=== PATIENT | female | born 1980 | race Caucasian/White ===

== ENCOUNTER 2017-03-15 15:04 | Observation (INO) | payer BC ==
[~2017-03-15] VITALS: Ht 165.1 cm; Wt 89.3 kg
[2017-03-15 17:12] LABS: ADD MIUA? YES; BILIRUBIN NEGATIVE; BLOOD NEGATIVE; COLOR YELLOW ((YELLOW)); GLUCOSE (STRIP) NEGATIVE; KETONES NEGATIVE; LEUKOCYTES NEGATIVE; NITRITE NEGATIVE; PROTEIN (STRIP) NEGATIVE; SPECIFIC GRAVITY 1.015 (1.000-1.030); UROBILINOGEN 0.2 MG/DL (0.2-1.0)
[2017-03-15 17:20] LABS: BACTERIA RARE /HPF; CALCIUM OXALATE CRYSTALS 1+ /HPF; EPITHELIAL CELLS RARE /HPF; MUCUS TRACE /LPF; RED BLOOD CELLS 0-5 /HPF (0-5); WHITE BLOOD CELLS 0-5 /HPF (0-5)
[2017-03-15 17:34] LABS: EOSINOPHIL (%) 1.9 % (0-5); EOSINOPHIL COUNT 0.1 K/uL (0-0.3); HEMATOCRIT 36.9 % (36.0-46.0); IMMATURE GRANULOCYTE (%) 0.3 % (0.0-0.7); INSTRUMENT ABS NEUTROPHIL CT 3.6 K/uL; LYMPHOCYTE COUNT 1.7 K/uL (1.0-2.8); MCH 29.6 PG (29.0-34.0); MCHC 33.3 G/DL (30.0-36.0); MCV 88.7 FL (83-99); MEAN PLAT.VOLUME 10.2 uM^3 (9.5-12.4); MONOCYTE (%) 6.7 % (3-12); MONOCYTE COUNT 0.4 K/uL (0-0.8); NEUTROPHIL (%) 61.9 % (45-76); NEUTROPHIL COUNT 3.6 K/uL (1.8-6.4); PLATELET COUNT 262 K/uL (156-360); RBC DIS.WIDTH-SD 38.9 % (39-53); RED BLOOD COUNT 4.16 M/uL (3.80-5.20); WHITE BLOOD COUNT 5.8 K/uL (4.1-10.2)
[2017-03-15 17:51] LABS: CHLORIDE 110 mEq/L (99-109); POTASSIUM 3.9 mEq/L (3.7-5.4); SODIUM 140 mEq/L (136-147)
[2017-03-15 17:53] LABS: GLUCOSE 94 mg/dL (70-99)
[2017-03-15 17:54] LABS: ANION GAP 5 MEQ/L (2-14)
[2017-03-15 17:55] LABS: TOTAL BILIRUBIN 0.4 mg/dL (0.0-1.0)
[2017-03-15 17:56] LABS: ALKALINE PHOSPHATASE 70 IU/L (3-129)
[2017-03-15 17:57] LABS: GFR ESTIMATE (CALCULATED) > 59 mL/min/
[2017-03-15 17:58] LABS: DIRECT BILIRUBIN 0.2 mg/dL (0.0-0.3); UREA NITROGEN (BUN) 11 mg/dL (9-23)
[2017-03-15 18:00] LABS: LIPASE 17 U/L (1.0-51.0)
[2017-03-15] MEDS ORDERED: ADVIL200 MG PO (19:39)
[2017-03-15] MEDS ORDERED: [UNRECOGNIZED DRUG - OTHER] PO (19:41)
[2017-03-16 00:16] VITALS: BP 104/59
[2017-03-16 05:44] LABS: EOSINOPHIL (%) 2.9 % (0-5); EOSINOPHIL COUNT 0.2 K/uL (0-0.3); HEMATOCRIT 34.4 % (36.0-46.0); IMMATURE GRANULOCYTE (%) 0.3 % (0.0-0.7); INSTRUMENT ABS NEUTROPHIL CT 3.1 K/uL; LYMPHOCYTE COUNT 2.4 K/uL (1.0-2.8); MCH 29.6 PG (29.0-34.0); MCHC 33.7 G/DL (30.0-36.0); MCV 87.8 FL (83-99); MONOCYTE (%) 8.3 % (3-12); MONOCYTE COUNT 0.5 K/uL (0-0.8); NEUTROPHIL (%) 49.5 % (45-76); NEUTROPHIL COUNT 3.1 K/uL (1.8-6.4); PLATELET COUNT 242 K/uL (156-360); RBC DIS.WIDTH-CV 12.1 % (11.8-14.6); RBC DIS.WIDTH-SD 39.1 % (39-53); RED BLOOD COUNT 3.92 M/uL (3.80-5.20); WHITE BLOOD COUNT 6.2 K/uL (4.1-10.2)
[2017-03-16 06:25] LABS: ALKALINE PHOSPHATASE 57 IU/L (3-129); ANION GAP 5 MEQ/L (2-14); CHLORIDE 110 MEQ/L (99-109); GFR ESTIMATE (CALCULATED) > 59 mL/min/; GLUCOSE 82 mg/dL (70-99); MAGNESIUM 2.1 mg/dl (1.3-2.7); SAMPLE HEMOLYSIS CHECK 0; SAMPLE ICTERIC CHECK 0; SAMPLE LIPEMIA CHECK 0; SODIUM 141 MEQ/L (136-147); TOTAL BILIRUBIN 0.5 MG/DL (0.0-1.0); UREA NITROGEN (BUN) 11 mg/dL (9-23)
[2017-03-16 07:38] VITALS: BP 125/58
[2017-03-16 11:01] VITALS: BP 116/71
[2017-03-16] MEDS ORDERED: COLACE100 MG PO (14:21)
[2017-03-16] MEDS ORDERED: PERCOCET 5/31 TABLET PO (14:21)
[2017-03-16 16:40] VITALS: BP 157/87
== END 2017-03-16 21:08 | disposition home or self-care (01) ==
LOC: RME 15:04 → EME 15:04 → 5EAST 19:20 → EDOF 19:20 → 5EAST 19:20 → ENRESERV 19:22 → 5EAST 20:06
PROVIDERS: Physician Assistant; Surgery
DX: K80.12 Calculus of gallbladder with acute and chronic cholecystitis without obstruction (principal); K66.0 Peritoneal adhesions (postprocedural) (postinfection)
CPT/HCPCS: 74176; 76700; 80048; 80053; 80076; 81003; 83690; 83735; 84100; 85025; 88304; 99281; 99284; G0378; J0131; J0330; J1885; J2250; J2405; J2543; J3010; J7050; J7120